=== PATIENT | male | born 1965 | race Caucasian/White ===

== ENCOUNTER 2022-12-05 10:04 | Inpatient (IN) | payer MEDICARE, OTHER ==
[~2022-12-05] VITALS: Ht 162.6 cm; Wt 75.5 kg
[~2022-12-05 10:04] MED LIST: ALPR-707 PO; APIX5TAB PO; ASPI-1450 PO; ATOR40TA28 PO; ESTR1TAB35 PO; EVOL140P3 SQ; GABA-1181 PO; LISI-893 PO; MONT-35 PO; MYCO180T12 PO; OMEP-99 PO; PANT-31 PO; PRED-549 PO; SERT-162 PO; SODIUM CHLORIDE 0.9% 1,000 ML IV ONE; TACR1CAP12 PO
[2022-12-05] MEDS ORDERED: DiphenhydrAMINE HCL 50 MG CAPSULE ONE (11:03)
[2022-12-05] MEDS ORDERED: DIAZEPAM 5 MG TABLET ONE (11:03)
[2022-12-05 11:37] LABS: GLUCOMETER DEV NAME(LOC) SDS.; GLUCOSE,POINT OF CARE 101 MG/DL (70-110)
[2022-12-05] MEDS ORDERED: TACR1CAP12 PO (11:43)
[2022-12-05] MEDS ORDERED: CARV12.530 PO (11:44)
[2022-12-05] MEDS ORDERED: DIAZEPAM 5 MG TABLET PO ONE (12:00)
[2022-12-05] MEDS ORDERED: ASPIRIN 81 MG CHEWABLE TABLET PO ONE (12:00)
[2022-12-05] MEDS ORDERED: DiphenhydrAMINE HCL 50 MG CAPSULE PO ONE (12:00)
[2022-12-05 12:22] LABS: PROTHROMBIN TIME 10.5 SEC (9.4-11.6)
[2022-12-05] MEDS ORDERED: SODIUM BICARBONATE 50 MEQ/50 ML VIAL ONE (12:56)
[2022-12-05] MEDS ORDERED: LIDOCAINE/PF 1% 30 ML VIAL ONE (12:56)
[2022-12-05] MEDS ORDERED: IOHEXOL 350 MG/ML 100 ML VIAL ONE (12:57)
[2022-12-05] MEDS ORDERED: HEPARIN SODIUM 1000 UNITS/NS 500 ML ONE ×2 (12:58)
[2022-12-05] MEDS ORDERED: FentaNYL CITRATE PF 100 MCG/2 ML VIAL ONE (13:00)
[2022-12-05] MEDS ORDERED: MIDAZOLAM HCL 2 MG/2 ML VIAL ONE (13:00)
[2022-12-05] MEDS ORDERED: IOHEXOL 300 MG/ML 100 ML VIAL IARTER ONE (14:00)
[2022-12-05] MEDS ORDERED: LIDOCAINE 1% 30 ML/SOD BICARB 8.4% 4 ML SQ ONE (14:00)
[2022-12-05] MEDS ORDERED: FentaNYL CITRATE PF 100 MCG/2 ML VIAL IVP ONE ×2 (14:00)
[2022-12-05] MEDS ORDERED: HEPARIN SODIUM 2,000 UNITS in HEPARIN SODIUM 1000 UNITS/NS 1,000 ML IARTER ONE (14:00)
[2022-12-05] MEDS ORDERED: CALC260T16 PO (14:09)
[2022-12-05] MEDS ORDERED: AMLO2.5T29 PO (14:09)
[2022-12-05] MEDS ORDERED: FLUT16H NASAL (14:09)
[2022-12-05] MEDS ORDERED: LISI20TA24 PO (14:09)
[2022-12-05] MEDS ORDERED: LACT10SO9 PO (14:09)
[2022-12-05] MEDS ORDERED: ALBU8HFA IH (14:09)
[2022-12-05] MEDS ORDERED: TACR0.5C21 PO (14:10)
[2022-12-05] MEDS ORDERED: MIDAZOLAM HCL 2 MG/2 ML VIAL IVP ONE (14:15)
[2022-12-05] MEDS ORDERED: TICAGRELOR 90 MG TABLET ONE (15:34)
[2022-12-05] MEDS ORDERED: TICAGRELOR 90 MG TABLET PO ONE (15:45)
[2022-12-05] MEDS ORDERED: MORPHINE SULFATE 2 MG/ML SYRINGE IVP PRN (18:00)
[2022-12-05] MEDS ORDERED: HYDROCODONE/ACETAMINOPHEN 5-325 MG TABLET PO PRN (18:00)
[2022-12-05] MEDS ORDERED: BISACODYL 10 MG RECTAL RECTAL SUPPOSITORY PR PRN (18:00)
[2022-12-05] MEDS ORDERED: MAGNESIUM HYDROXIDE SUSPENSION 30 ML UDCUP PO PRN (18:00)
[2022-12-05] MEDS ORDERED: ALBUTEROL SULFATE 2.5 MG/0.5 ML NEB SOLUTION NEB PRN (18:00)
[2022-12-05] MEDS ORDERED: ONDANSETRON HCL 4 MG/2 ML VIAL IVP PRN (18:00)
[2022-12-05] MEDS ORDERED: IPRATROPIUM BROMIDE 0.5 MG/2.5 ML NEB SOLUTION NEB PRN (18:00)
[2022-12-05] MEDS ORDERED: ACETAMINOPHEN 325 MG TABLET PO PRN (18:00)
[2022-12-05] MEDS ORDERED: ZOLPIDEM TARTRATE 5 MG TABLET PO PRN (18:00)
[2022-12-05 20:00] VITALS: BP 148/66
[2022-12-05 21:00] VITALS: BP 151/68
[2022-12-05] MEDS ORDERED: MONTELUKAST SODIUM 10 MG TABLET PO SCH (21:00)
[2022-12-05] MEDS ORDERED: TACROLIMUS 1 MG CAPSULE PO SCH (21:00)
[2022-12-05 22:10] VITALS: BP 148/64
[2022-12-05] MEDS: MYCOPHENOLATE SODIUM 180 MG DR TABLET PO SCH (23:03)
[2022-12-05] MEDS: GABAPENTIN 300 MG CAPSULE PO SCH (23:03)
[2022-12-05] MEDS: CALCIUM CARBONATE 648 MG TABLET PO SCH (23:03)
[2022-12-05] MEDS: CARVEDILOL 12.5 MG TABLET PO SCH (23:03)
[2022-12-05] MEDS: LACTULOSE 20 GM/30 ML SOLUTION UDCUP PO SCH (23:04)
[2022-12-05] MEDS ORDERED: TICA90TA PO (23:12)
[2022-12-05] MEDS ORDERED: HYDR-4723 PO (23:12)
[2022-12-05 23:30] VITALS: BP 137/59
[2022-12-06 04:27] VITALS: BP 121/56
[2022-12-06] MEDS ORDERED: OMEPRAZOLE 20 MG CAPSULE PO SCH (06:30)
[2022-12-06 07:42] VITALS: BP 156/67
[2022-12-06] MEDS: MYCOPHENOLATE SODIUM 180 MG DR TABLET PO SCH (08:47)
[2022-12-06] MEDS: CALCIUM CARBONATE 648 MG TABLET PO SCH (08:47)
[2022-12-06] MEDS: CARVEDILOL 12.5 MG TABLET PO SCH (08:48)
[2022-12-06] MEDS: GABAPENTIN 300 MG CAPSULE PO SCH (08:48)
[2022-12-06] MEDS: LACTULOSE 20 GM/30 ML SOLUTION UDCUP PO SCH (08:48)
[2022-12-06] MEDS ORDERED: FLUTICASONE PROPIONATE 50 MCG/SPRAY 16 GM NASAL SPRAY NASAL SCH (09:00)
[2022-12-06] MEDS ORDERED: ATORVASTATIN CALCIUM 40 MG TABLET PO SCH (09:00)
[2022-12-06] MEDS ORDERED: ALPRAZolam 0.5 MG TABLET PO SCH (09:00)
[2022-12-06] MEDS ORDERED: AmLODIPine BESYLATE 2.5 MG TABLET PO SCH (09:00)
[2022-12-06] MEDS ORDERED: LISINOPRIL 20 MG TABLET PO SCH (09:00)
[2022-12-06] MEDS ORDERED: PredniSONE 5 MG TABLET PO SCH (09:00)
[2022-12-06] MEDS ORDERED: SERTRALINE HCL 100 MG TABLET PO SCH (09:00)
[2022-12-06] MEDS ORDERED: TICAGRELOR 90 MG TABLET PO SCH (09:00)
[2022-12-06] MEDS ORDERED: TACROLIMUS 0.5 MG CAPSULE PO SCH (09:00)
[2022-12-06] MEDS ORDERED: ASPIRIN 81 MG CHEWABLE TABLET PO SCH (09:00)
== END 2022-12-06 10:12 | disposition home or self-care (01) | DRG 247 ==
LOC: CATHLAB 10:04 → 5S 10:05
PROVIDERS: ADMIT Hospitalist; ATTEND Hospitalist
PROC: 067C3ZZ Dilation of Right Common Iliac Vein, Percutaneous Approach (ICD-10-PCS; principal; 2022-12-05)
PROC: 027034Z Dilation of Coronary Artery, One Artery with Drug-eluting Intraluminal Device, Percutaneous Approach (ICD-10-PCS; 2022-12-05)
PROC: 067F3ZZ Dilation of Right External Iliac Vein, Percutaneous Approach (ICD-10-PCS; 2022-12-05)
PROC: B41F1ZZ Fluoroscopy of Right Lower Extremity Arteries using Low Osmolar Contrast (ICD-10-PCS; 2022-12-05)
PROC: 4A023N8 Measurement of Cardiac Sampling and Pressure, Bilateral, Percutaneous Approach (ICD-10-PCS; 2022-12-05)
PROC: B2111ZZ Fluoroscopy of Multiple Coronary Arteries using Low Osmolar Contrast (ICD-10-PCS; 2022-12-05)
PROC: B2151ZZ Fluoroscopy of Left Heart using Low Osmolar Contrast (ICD-10-PCS; 2022-12-05)
PROC: B2131ZZ Fluoroscopy of Multiple Coronary Artery Bypass Grafts using Low Osmolar Contrast (ICD-10-PCS; 2022-12-05)
DX: I25.10 Atherosclerotic heart disease of native coronary artery without angina pectoris (principal); Z94.0 Kidney transplant status; Z94.83 Pancreas transplant status; I27.20 Pulmonary hypertension, unspecified; E78.5 Hyperlipidemia, unspecified; I10 Essential (primary) hypertension; Z20.822 Contact with and (suspected) exposure to COVID-19; I05.0 Rheumatic mitral stenosis; Z79.899 Other long term (current) drug therapy; Z79.82 Long term (current) use of aspirin; Z95.1 Presence of aortocoronary bypass graft; Z95.5 Presence of coronary angioplasty implant and graft
CPT/HCPCS: 75962; 82962; 85610; 85730; 92920; 92928; 93005; 93460; C2623; J1644; J2250; J3010; J3490; J7507; J7518; Q9967; 36415-L1; 36415-TC